=== PATIENT | male | born 1955 | race Caucasian/White ===

== ENCOUNTER 2019-04-07 12:59 | Emergency (ER) | payer MEDICAID, SELFPAY ==
[2019-04-07 13:01] VITALS: BP 131/90; PULSE 85; RESP 18; TEMP 36.9; O2SAT 99; BMI 21.7
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
[2019-04-07] MEDS: Diphth,Pertuss(Acell),Tet Vac 0.5 ML Vial IM (15:04)
[2019-04-07 15:16] VITALS: BP 128/78; PULSE 87; RESP 18; O2SAT 99
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
== END 2019-04-07 15:55 | disposition home or self-care (01) ==
PROVIDERS: Emergency Provider Emergency Medicine
DX: S02.40DA Maxillary fracture, left side, initial encounter for closed fracture (principal); S01.81XA Laceration without foreign body of other part of head, initial encounter; S83.92XA Sprain of unspecified site of left knee, initial encounter; S50.01XA Contusion of right elbow, initial encounter; Z72.0 Tobacco use; Y00.XXXA Assault by blunt object, initial encounter; Y93.89 Activity, other specified; Y92.099 Unspecified place in other non-institutional residence as the place of occurrence of the external cause; Y99.8 Other external cause status
CPT/HCPCS: 12013; 70450; 70486; 73080; 73564; 90471; 90715; 99284

== ENCOUNTER 2019-08-28 00:22 | Emergency (ER) | payer MEDICAID, SELFPAY ==
[2019-08-28 00:22] VITALS: BP 112/73; PULSE 91; RESP 16; TEMP 36.7; O2SAT 94
[2019-08-28 00:25] VITALS: BP 112/73; PULSE 91; RESP 18; TEMP 36.7; O2SAT 94; BMI 24.6
[2019-08-28 00:58] LABS: Absolute Lymphocyte Count 3.26 X10^3/uL (0.83-4.51); Absolute Neutrophil Count 6.1 X10^3/uL (2.0-7.7); Basophil# 0.12 X10^3/uL; Basophil% 1.1 % (0-1); Eosinophil# 0.43 X10^3/uL; Hematocrit 40.5 % (40-54); Hemoglobin 13.3 g/dL (13.0-16.5); Lymphocyte # 3.26 X10^3/ul (4.0); Mean Corp Hgb Conc 32.8 g/dL (32-36); Mean Corpuscular Hgb 31.9 pg (27.0-32.0); Mean Corpuscular Volume 97.1 fL (80-94); Mean Platelet Vol. 9.5 fl (6.2-12.0); Monocyte# 0.96 X10^3/uL; Monocyte% 8.8 % (0-10); NRBC Flagged by Analyzer 0 % (0-5); Neutrophil # 6.07 X10^3/uL (2.7-7.7); Neutrophil % 55.7 % (47-70); Platelet Count 329 K/mm3 (150-450); RBC Distribution Width CV 13.5 % (11.6-14.6); RBC Distribution Width SD 48.3 fl (35.1-43.9); Red Blood Count 4.17 M/mm3 (4.6-6.2); White Blood Count 10.9 K/mm3 (4.4-11.0)
[2019-08-28 01:08] LABS: Anion Gap 6 (5-15); BUN 11 mg/dL (7-18); BUN/Creat Ratio 13.1 RATIO (10-20); Calcium,Total 8.3 mg/dL (8.5-10.1); Chloride 109 mmol/L (98-107); Creatinine, Serum 0.84 mg/dL (0.70-1.30); EST Glomerular Filtration Rate 98 mL/min (>60); Est Glom Filt Rate - Afr Amer 119 mL/min (>60); Estimated Creatinine Clearance 95.87 ml/min; Glucose 95 mg/dL (74-106); Potassium 3.8 mmol/L (3.5-5.1); Sodium Level 141 mmol/L (136-145)
[2019-08-28 01:10] LABS: Amphetamine Urine VISTA NEGATIVE (<1000 ng/mL); Barbiturate Urine VISTA NEGATIVE (< 200 ng/mL); Benzodiazepine Urine VISTA NEGATIVE (< 200 ng/mL); Cocaine Urine VISTA NEGATIVE (< 300 ng/mL); Ecstacy Urine VISTA NEGATIVE (< 500 ng/mL); Methadone Urine VISTA NEGATIVE (< 300 ng/mL); PCP Urine VISTA NEGATIVE (< 25 ng/mL); THC Urine VISTA POSITIVE (< 50 ng/mL); Vista UDS pH Range 6
--- NOTE | 2019-08-28 01:15 | ED.DCSUM_ITS ---
- ER Visit Summary Date of Service: 08/28/19 Chief Complaint: Suicidal ideations History of Present Illness: The patient is a 64 M who presents with suicidal ideations that have been getting worse over the past month. Patient denies any specific plan. Patient states he has been having suicidal ideations most of his life. Patient admits to some auditory hallucinations. Patient states he hears 1 voice that is telling him to hurt himself. Patient states she also has a hero voice that keeps him from hurting himself. Patient states he chooses to listen to that voice. Patient denies any visual hallucinations. Patient states he currently does not see a counselor but has been seen at the counseling center in the past. Patient admits to marijuana use. Physical Examination: Vital signs are stable. Patient is afebrile. Patient is in no acute distress. Oral mucosa is pink and moist. Neck is supple. Trachea is midline. There is no JVD. Heart was regular rate and rhythm. Lungs are clear and equal bilaterally. Abdomen is soft and nontender. Bowel sounds are normal. Extremities are intact. There is no calf tenderness or edema. Cranial nerves II through XII are intact. There are no focal motor or sensory deficits noted. Patient does have a somewhat depressed mood and flat affect. Patient admits to some suicidal thoughts but denies any specific plan. Test Results: CBC and comprehensive metabolic profile were obtained and were essentially within normal limits. Urine tox urine was positive for cannabinoids. Serum alcohol level was normal. Emergency Department Course and Treatment: Suicide precautions were maintained. Case was discussed with the crisis counselor. They did an evaluation over the phone. They do not feel the patient is actively suicidal at this time. I am agreeable with this. Patient was set up to follow-up with the counseling center early next week. Patient was instructed to return if worse in any way. Patient understood and was agreeable with the plan. All questions were answered. Disposition: Discharge home Impression: 1. Depression This note was generated with [employer] dictation software. It may contain incorrect words, spelling, and punctuation that were not noted in review of the chart prior to signing ED Disposition - Plan for ED Patient: Disposition: Home or Assisted Living Diagnosis: Depression Instructions: ED Depression Referrals: Care Physician,No Primary [Primary Care Provider] - Counseling,Center [GROUP OF PHYSICIANS] - 3-5 Days
--- NOTE | 2019-08-28 01:27 | ED.RN ---
CRISIS CALLED AT 0125
[2019-08-28 02:09] VITALS: RESP 18
--- NOTE | 2019-08-28 02:20 | ED.RN ---
DR. ROCKWELL TOLD THIS NURSE THAT WE COULD DISCONTINUE THE SUICIDE PRECAUTIONS AND SITTER AFTER TALKING TO CRISIS AN COMING TO THE CONSENSUS THAT PATIENT IS NOT A THREAT TO HIMSELF.
[2019-08-28 03:12] VITALS: BP 98/62; PULSE 87; RESP 18; O2SAT 93
== END 2019-08-28 03:23 | disposition home or self-care (01) ==
PROVIDERS: Emergency Provider Emergency Medicine
DX: F32.9 Major depressive disorder, single episode, unspecified (principal); F17.200 Nicotine dependence, unspecified, uncomplicated
CPT/HCPCS: 36415; 80048; 80307; 80320; 85025; 99283; G0480

== ENCOUNTER 2020-11-12 12:55 | Emergency (ER) | payer MEDICAID, SELFPAY ==
[2020-11-12 12:56] VITALS: BP 123/92; PULSE 115; RESP 16; TEMP 36.4; O2SAT 96; BMI 21.6
--- NOTE | 2020-11-12 13:22 | EX.ED.UPPERE ---
HPI History of Present Illness Chief Complaint: Wound Informant: patient Narrative Narrative: 65-year-old male states that his dog was attacked by another dog and he got that dog . He sustained a dog bite to the left palm at the base of the long finger. He notes abrasions to the right forearm. Unknown last tetanus. Tetanus Immunization: Unknown [facility] Home Medications amoxicillin-pot clavulanate 875 mg PO Q12H #20 tablet 11/12/20 [Rx Last Taken Unknown] Allergy/AdvReac Type Severity Reaction Status Date / Time aspirin AdvReac Nausea Verified 11/12/20 12:59 Social History (Updated 11/12/20 @ 13:[address] Sim Mojica, DO) Smoking Status: Current every day smoker substance use type: does not use ROS ROS ED Constitutional Constitutional ED: Denies chills or weight loss Eyes Eyes: Denies change in vision or diplopia ENT ENT ED: Denies ear pain, rhinorrhea or sore throat Cardiovascular Cardiovascular: Denies chest pain, orthopnea, palpitations or racing heartbeat Respiratory/Chest Respiratory/Chest: Denies cough, dyspnea or orthopnea Gastrointestinal Gastrointestinal: Denies abdominal pain, diarrhea, nausea or vomiting Genitourinary Genitourinary ED: Denies dysuria, hematuria or urinary frequency Musculoskeletal Musculoskeletal: Denies arthralgias or myalgias Integumentary Reports other Details: History of present illness ; Denies abscess or rash Neurologic Neurologic: Denies headache(s) or weakness Psychiatric Psychiatric: Denies anxiety, depression, suicidal ideation or suicidal thoughts Endocrine Endocrinology: Denies polydipsia, polyphagia or polyuria Allergic/Immunologic Allergic/Immunologic ED: Denies mouth swelling, tongue swelling or urticaria EXAM Physical Exam Const Vital Signs: 11/12/20 12:56 Temperature 97.5 F L Temperature Source Temporal Pulse Rate 115 H Respiratory Rate 16 Blood Pressure 123/92 H Blood Pressure Mean 102 Pulse Ox 96 Oxygen Delivery Method Room Air Positive well nourished and well developed General Appearance ED: well developed HEENT Reports normocephalic, head/scalp atraumatic and moist mucous membranes Eyes PERRL and EOMs intact bilaterally Neck no lymphadenopathy, supple and no JVD Resp normal respiratory effort and clear to auscultation bilaterally Cardio regular rate, regular rhythm and no murmurs GI normal to inspection, nondistended, normoactive bowel sounds and non-tender Palpation: soft Back/Spine no CVA tenderness and normal ROM Extremity normal to inspection General Extremety ED: Negative for edema General Extremity: Negative for edema Neuro oriented x3 and CN's II-XII intact bilaterally Sensorium / Orientation: alert Motor Exam: strength 5/5 throughout Psych mental status grossly normal Mood & Affect: Negative for depressed or tearful Skin no rashes or lesions noted and no wounds Skin Narrative: There are 2 superficial abrasions of about 2 cm each on the right forearm. There is a puncture wound at the base of the long finger on the palmar aspect of the left hand. Neurovascular he appears intact. Tendon function appears normal. MDM MDM MDM Narrative Medical decision making narrative: Patient chance tetanus will be updated. Patient does not wish an x-ray to rule out foreign body. I do not palpate any foreign bodies over the wound. He is at high risk for infection I will be placing him on Augmentin. Patient to return if any concerns of developing infection. Discharge Plan Triage Chief Complaint: Wound Other Complaint: Cellulitis ED Provider: Sim Mojica Dx/Rx/DC Orders Clinical Impression: Dog bite of left hand Instructions: ED Dog Bite Prescriptions: New amoxicillin-pot clavulanate [amoxicillin-pot clavulanate] 875 MG tablet 875 mg PO Q12H Qty: 20 RF: 0 Primary Care Provider: Care Physician,No Primary Referrals: Jacqueline Adams [NON-STAFF] - 3-5 Days (for wound check) Care Physician,No Primary [Primary Care Provider] - Disposition Disposition: Home, Self Care
[2020-11-12] MEDS: Amox/Clavulanate 875 MG Tablet PO (13:29)
[2020-11-12] MEDS: Diphth,Pertuss(Acell),Tet Vac 0.5 ML Vial IM (13:29)
== END 2020-11-12 14:09 | disposition home or self-care (01) ==
LOC: ED 13:44
PROVIDERS: Emergency Provider Emergency Medicine
DX: S61.452A Open bite of left hand, initial encounter (principal); F17.200 Nicotine dependence, unspecified, uncomplicated; S50.811A Abrasion of right forearm, initial encounter; W54.0XXA Bitten by dog, initial encounter
CPT/HCPCS: 90715; 96372; 99283